=== PATIENT | female | born 1965 | race Caucasian/White ===

== ENCOUNTER → 2020-08-31 17:19 | Outpatient (CLI) | payer BC, SELFPAY ==
--- NOTE | ~2020-08-31 | XR_ITS ---
XR ribs LT 2V DATE: 08/31/2020 17:37 INDICATION: Left breast malignancy TECHNIQUE: 3 views COMPARISON: None FINDINGS: No left rib fracture or bone destruction is evident. No underlying pulmonary infiltrate or consolidation, pleural effusion or pneumothorax. Status post cholecystectomy IMPRESSION: Negative left ribs Reviewed, dictated and finalized at location A. IMPRESSION: Negative left ribs
== END ==
DX: C50.212 Malignant neoplasm of upper-inner quadrant of left female breast (principal); Z17.0 Estrogen receptor positive status [ER+]
CPT/HCPCS: 71100

== ENCOUNTER → 2020-09-15 10:27 | Outpatient (CLI) | payer BC, SELFPAY ==
--- NOTE | ~2020-09-15 | CT_ITS ---
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 TECHNIQUE: Spiral CT of the abdomen was performed following intravenous injection of 100 mL Omnipaque 350. Axial, coronal and sagittal images were reviewed. The dose-length product (DLP) for this exam ination was 414.96 mGy-cm. The exposure was tailored according to patient size (auto mA exposure con trol), and iterative reconstruction (ASIR) was used as additional dose reduction technique. Compariso n is made to prior examination from 06/02/2017. FINDINGS: There is a subcentimeter right liver lobe cyst. The liver, spleen, adrenal glands and panc reas are otherwise unremarkable. There are cholecystectomy clips. Portal and splenic veins are lawson nt. Kidneys enhance symmetrically. There is no hydronephrosis. There is no retroperitoneal lymph adenopathy. There is small umbilical fat-containing hernia. The stomach and small bowel are unremarkable. There is expected amount of colonic stool. No free i ntraperitoneal gas. The heart is normal in size. There are no pericardial or pleural effusions. T here is 4 mm left lower lobe nodule, image 20, probably same nodule identified on prior study, but no w better visualized due to resolution of previously seen patchy left basilar atelectasis. This is lik amina a granuloma. There are no osteoblastic or osteolytic lesions identified. IMPRESSION: 1. No evidence of abdominal metastatic disease. 2. Small umbilical hernia. 3. Left basilar granuloma. Reviewed, dictated and finalized at location A.
[2020-09-15 11:04] LABS: Estimated Glomerular Filt Rate > 60
== END ==
DX: C50.212 Malignant neoplasm of upper-inner quadrant of left female breast (principal); Z17.0 Estrogen receptor positive status [ER+]; K42.9 Umbilical hernia without obstruction or gangrene; R07.81 Pleurodynia
CPT/HCPCS: 74160; Q9967